=== PATIENT | male | born 1990 | race Caucasian/White ===

== ENCOUNTER 2017-12-28 14:49 | Emergency (ER) | payer SELFPAY ==
[~2017-12-28] VITALS: Ht 175.3 cm; Wt 81.0 kg
[2017-12-28 14:50] VITALS: BP 148/98
== END 2017-12-28 20:27 | disposition left against medical advice (07) ==
LOC: ER 14:58
DX: Z53.21 Procedure and treatment not carried out due to patient leaving prior to being seen by health care provider (principal); F41.9 Anxiety disorder, unspecified